=== PATIENT | female | born 1995 | race American Indian/Alaskan Native ===

== ENCOUNTER 2020-01-15 11:08 | Emergency (ER) | payer SELFPAY ==
[2020-01-15 11:40] VITALS: BP 110/64
--- NOTE | 2020-01-15 13:16 | Emergency Department Report ---
ED General Adult HPI - General Chief complaint: Skin Rash Stated complaint: BODY HIVES Time Seen by Provider: 01/15/20 12:25 Source: patient Mode of arrival: Ambulatory Limitations: No Limitations - History of Present Illness Initial comments: This is a pleasant 24-year-old female presents the emergency department chief complaint of a burning painful rash to the labia minora over the past 2 3 days. Patient reports she has not any sexual sexual contact for the past 6 months. She denies any vaginal discharge, she denies abdominal pain, fever, chills, night sweats, headache, dizziness, blurry vision, nausea, vomiting, diarrhea, chest pain, shortness of breath or any other associated symptoms. She does report some dysuria. She denies any known past medical history, current medications or known allergies to medications. - Related Data Previous Rx's Medication Instructions Recorded Last Taken Type Nitrofurantoin [place]/M-Cryst 100 mg PO Q12HR #14 capsule 01/15/20 Unknown Rx [Macrobid CAP] Valacyclovir HCl [Valtrex] 1,000 mg PO TID #30 tablet 01/15/20 Unknown Rx Allergies Allergy/AdvReac Type Severity Reaction Status Date / Time Penicillins Allergy Anaphylaxis Verified 01/15/20 11:39 ED Review of Systems ROS: Stated complaint: BODY HIVES Other details as noted in HPI Comment: All other systems reviewed and negative Constitutional: denies: chills, fever Eyes: denies: eye pain, eye discharge, vision change ENT: denies: ear pain, throat pain Respiratory: denies: cough, shortness of breath, wheezing Cardiovascular: denies: chest pain, palpitations Endocrine: no symptoms reported Gastrointestinal: denies: abdominal pain, nausea, diarrhea Genitourinary: as per HPI, dysuria, other. denies: urgency, discharge Musculoskeletal: denies: back pain, joint swelling, arthralgia Skin: denies: rash, lesions Neurological: denies: headache, weakness, paresthesias Psychiatric: denies: anxiety, depression Hematological/Lymphatic: denies: easy bleeding, easy bruising ED Past Medical Hx - Past Medical History Previous Medical History?: No - Surgical History Past Surgical History?: No - Medications Home Medications: Home Medications Medication Instructions Recorded Confirmed Last Taken Type Nitrofurantoin [place]/M-Cryst 100 mg PO Q12HR #14 capsule 01/15/20 Unknown Rx [Macrobid CAP] Valacyclovir HCl [Valtrex] 1,000 mg PO TID #30 tablet 01/15/20 Unknown Rx ED Physical Exam - General Limitations: No Limitations General appearance: alert, in no apparent distress - Head Head exam: Present: atraumatic, normocephalic - Eye Eye exam: Present: normal appearance, PERRL, EOMI Pupils: Present: normal accommodation - ENT ENT exam: Present: normal exam, normal orophraynx, mucous membranes moist - Neck Neck exam: Present: normal inspection, full ROM. Absent: tenderness, meningismus - Respiratory Respiratory exam: Present: normal lung sounds bilaterally. Absent: respiratory distress, wheezes, rales, rhonchi, stridor - Cardiovascular Cardiovascular Exam: Present: regular rate, normal rhythm, normal heart sounds. Absent: systolic murmur, diastolic murmur, rubs, gallop - GI/Abdominal GI/Abdominal exam: Present: soft, normal bowel sounds. Absent: distended, tenderness, guarding, rebound, rigid - External exam: Present: erythema, lesions, other (Chaperoned by ELMER Andrea, multiple vesicles on erythematous base to the labia minora) - Extremities Exam Extremities exam: Present: normal inspection, full ROM, normal capillary refill. Absent: tenderness - Back Exam Back exam: Present: normal inspection, full ROM. Absent: tenderness, CVA tenderness (R), CVA tenderness (L), muscle spasm - Neurological Exam Neurological exam: Present: alert, oriented X3, normal gait - Psychiatric Psychiatric exam: Present: normal affect, normal mood - Skin Skin exam: Present: warm, dry, intact, normal color. Absent: rash ED Course Vital Signs 01/15/20 01/15/20 11:38 11:40 Temperature 98.5 F Pulse Rate 68 Respiratory 16 Rate Blood Pressure 110/64 O2 Sat by Pulse 100 Oximetry ED Medical Decision Making - Medical Decision Making The patient's exam was unfortunately consistent with herpes simplex. I will start the patient on Valtrex and recommend follow-up the health department for STI work-up. She instructed to return the emerge department any change or worsening symptoms. We will check her urine test prior to discharge patient's urine showed a few white blood cells and with her symptoms of dysuria I will cover her with Macrobid. Recommended outpatient follow-up with the health department. She verbalized understand the diagnosis, treatment plan and follow-up instructions. She understood that she need to be checked for all other STDs and she need to abstain from sexual contact until seen by the health department and fully had these things ruled out. She verbalized understand the diagnosis, treatment plan and follow-up instructions and all of her questions were answered. - Differential Diagnosis herpes, syphilis, UTI Critical care attestation.: If time is entered above; I have spent that time in minutes in the direct care of this critically ill patient, excluding procedure time. ED Disposition Clinical Impression: Herpes labialis without complication Disposition: DC- TO HOME OR SELFCARE Is pt being admited?: No Condition: Stable Instructions: Genital Herpes Prescriptions: Nitrofurantoin [place]/M-Cryst [Macrobid CAP] 100 mg PO Q12HR #14 capsule Valacyclovir HCl [Valtrex] 1,000 mg PO TID #30 tablet Referrals: [facility] [Outside] - 3-5 Days PRIMARY CARE, [Primary Care Provider] - 3-5 Days Time of Disposition: 15:25
[2020-01-15 15:08] LABS: Bacteria,Urine 1+ /HPF (Negative); Bilirubin,Urine NEG (Negative); Blood,Urine NEG (Negative); Color,Urine Yellow (Yellow); Mucus,Urine FEW /HPF
[2020-01-15 15:11] LABS: HCG Qualitative,Urine Negative (Negative)
== END 2020-01-15 15:37 | disposition home or self-care (01) ==
LOC: ED 11:08
DX: B00.1 Herpesviral vesicular dermatitis (principal)
CPT/HCPCS: 81001; 81025; 87086; 99283